=== PATIENT | female | born 1955 | race African-American/Black ===

== ENCOUNTER 2019-01-25 22:58 | Emergency (ER) | payer SELFPAY ==
[~2019-01-25] VITALS: Ht 165.1 cm; Wt 59.0 kg
[2019-01-26] MEDS ORDERED: MORPHINE SULFATE 10 MG/ML CPJ IM ONE (00:30)
[2019-01-26] MEDS ORDERED: ONDANSETRON HCL 4MG/2ML INJ IM ONE (00:30)
[2019-01-26 03:15] VITALS: BP 112/66
== END 2019-01-26 03:15 | disposition home or self-care (01) ==
LOC: ER 22:58
DX: S02.31XA Fracture of orbital floor, right side, initial encounter for closed fracture (principal); S02.40EA Zygomatic fracture, right side, initial encounter for closed fracture; S06.9X1A Unspecified intracranial injury with loss of consciousness of 30 minutes or less, initial encounter; F12.10 Cannabis abuse, uncomplicated; W03.XXXA Other fall on same level due to collision with another person, initial encounter; Y93.89 Activity, other specified; Y92.89 Other specified places as the place of occurrence of the external cause; Y99.8 Other external cause status
CPT/HCPCS: 70450; 70486; 96372; 99284; J2270; J2405